=== PATIENT | female | born 1935 | race Two or more races ===

== ENCOUNTER → 2017-06-11 | Outpatient (CLI) | payer MEDICARE, OTHER ==
[~2017-06-11] MED LIST: AMLO5TAB2 PO; ASPI-496 PO; CALC-171 PO; CARI250T PO; METF500T4 PO; MULT-257 PO; OXYC-307 PO; PROM25TA10 PO; TEMA30CA PO; TRAV5DRO EACHEYE
== END ==
LOC: RAD 14:10
PROVIDERS: ATTEND Neurological Surgery
DX: M48.54XA Collapsed vertebra, not elsewhere classified, thoracic region, initial encounter for fracture (principal); M54.5 Low back pain; M41.9 Scoliosis, unspecified; Z98.1 Arthrodesis status; Z98.890 Other specified postprocedural states
CPT/HCPCS: 72072; 72082; 72100